=== PATIENT | female | born 1960 | race Two or more races ===

== ENCOUNTER 2019-02-13 20:17 | Emergency (ER) | payer BC ==
[~2019-02-13] VITALS: Ht 152.4 cm; Wt 72.6 kg
[2019-02-14] MEDS ORDERED: ONDANSETRON ODT 4 MG TAB PO ONE (01:15)
[2019-02-14] MEDS ORDERED: HYDROcodone-ACET 5/325MG TAB PO ONE (01:15)
[2019-02-14 01:40] VITALS: BP 121/68
== END 2019-02-14 01:45 | disposition home or self-care (01) ==
LOC: ER 20:20
DX: S82.832A Other fracture of upper and lower end of left fibula, initial encounter for closed fracture (principal); X50.9XXA Other and unspecified overexertion or strenuous movements or postures, initial encounter; Y93.89 Activity, other specified; Y92.828 Other wilderness area as the place of occurrence of the external cause; Y99.8 Other external cause status
CPT/HCPCS: 29515; 99283; Q0162